=== PATIENT | male | born 1980 | race Caucasian/White ===

== ENCOUNTER 2016-09-12 18:55 | Emergency (ER) | payer MEDICAID ==
[~2016-09-12] VITALS: Ht 188 cm; Wt 110.7 kg
[2016-09-12 22:02] VITALS: BP 131/89
== END 2016-09-12 22:02 | disposition home or self-care (01) ==
LOC: ED 18:55
DX: E86.0 Dehydration (principal); R11.10 Vomiting, unspecified; R19.7 Diarrhea, unspecified
CPT/HCPCS: Q0162